=== PATIENT | male | born 1955 | race Two or more races ===

== ENCOUNTER → 2024-01-01 | Outpatient (CLI) | payer MEDICARE, MEDICAID, SELFPAY ==
[2024-01-01 11:20] LABS: Alanine Aminotransferase 17 U/L (10-49); Albumin, Serum 4.2 gm/dL (3.4-4.8); Alkaline Phosphatase 113 U/L (46-116); Aspartate Amino Transferase 16 U/L (0-34); Bilirubin,Direct < 0.1 mg/dL (0.0-0.3); Bilirubin,Total 0.4 mg/dL (0.3-1.2)
== END | disposition home or self-care (01) ==
LOC: COPL 08:58
PROVIDERS: PCP Physician Assistant; Referring Provider Podiatrist Foot & Ankle Surgery; Visit Provider Podiatrist Foot & Ankle Surgery
DX: B35.1 Tinea unguium (principal)
CPT/HCPCS: 36415; 80076